=== PATIENT | female | born 1960 | race African-American/Black ===

== ENCOUNTER 2023-07-23 11:50 | Emergency (ER) | payer OTHER | END 2023-07-23 12:54 | disposition home or self-care (01) | LOC: CSHERS 11:50 | DX: J20.9 Acute bronchitis, unspecified (principal); I10 Essential (primary) hypertension; E78.5 Hyperlipidemia, unspecified; Z87.891 Personal history of nicotine dependence; Z55.6 Problems related to health literacy | CPT/HCPCS: 71046 ==